=== PATIENT | female | born 1995 | race Caucasian/White ===

== ENCOUNTER 2019-08-15 21:14 | Emergency (ER) | payer OTHER ==
[~2019-08-15] VITALS: Ht 157.4 cm; Wt 91.5 kg
[~2019-08-15 21:14] MED LIST: CETI10TA17; FLUT100D; NF-XOP-HFA
[2019-08-15] MEDS ORDERED: LACTATED RINGERS 1,000 ML IV ONE (21:32)
[2019-08-15 21:42] LABS: BASOPHILS % (AUTO) 0 % (0-10); EOSINOPHILS % (AUTO) 0 % (0-10); HEMATOCRIT 33 % (35-52); HEMOGLOBIN 11.1 G/DL (11.5-16.0); LYMPHOCYTES # (AUTO) 0.8 X 10^3 (1.0-4.0); LYMPHOCYTES % (AUTO) 7 % (12-44); MEAN CORPUSCULAR HEMOGLOBIN 26 PG (25-34); MEAN CORPUSCULAR HGB CONC 34 G/DL (32-36); MEAN CORPUSCULAR VOLUME 78 FL (80-99); MONOCYTES # (AUTO) 0.6 X 10^3 (0.0-1.0); MONOCYTES % (AUTO) 6 % (0-12); NEUTROPHILS % (AUTO) 87 % (42-75); PLATELET COUNT 266 10^3/uL (130-400); RED CELL DISTRIBUTION WIDTH 13.6 % (10.0-14.5); WHITE BLOOD COUNT 10.4 10^3/uL (4.3-11.0)
[2019-08-15 21:58] LABS: ALANINE AMINOTRANSFERASE 35 U/L (0-55); ALBUMIN 3.5 GM/DL (3.2-4.5); ALKALINE PHOSPHATASE 82 U/L (40-136); BILIRUBIN,TOTAL 0.2 MG/DL (0.1-1.0); BUN/CREATININE RATIO 9; CALCIUM 8.1 MG/DL (8.5-10.1); CARBON DIOXIDE 17 MMOL/L (21-32); CHLORIDE 105 MMOL/L (98-107); CREATININE SERUM 0.68 MG/DL (0.60-1.30); GFR ESTIMATED > 60; GLUCOSE 115 MG/DL (70-105); POTASSIUM 3.6 MMOL/L (3.6-5.0); SODIUM 133 MMOL/L (135-145); TOTAL PROTEIN 6.9 GM/DL (6.4-8.2)
[2019-08-15] MEDS ORDERED: PROAIR (22:01)
--- NOTE | 2019-08-15 22:21 | ED General ---
General Chief Complaint: Cough/Cold/Flu Symptoms Stated Complaint: FEVER / COUGH - 32 WKS PREG Nursing Triage Note: FEVER 101.2 AT 1900 TOOK TYLENOL, HAS HX OF DECREASED MOVEMENT WITH FEBRILE ILLNESS. SOB AND PRODUCTIVE COUGH NOTED Nursing Sepsis Screen: No Definite Risk Source of Information: Patient Exam Limitations: No Limitations History of Present Illness Date Seen by Provider: Aug 15, 2019 Time Seen by Provider: 21:18 Initial Comments This 24-year-old young lady is about 32 weeks gestational age and presents with complaints of cough, dyspnea, tachycardia, myalgias, earache, sore throat, and temperature up to 101.2. She last took Tylenol at 19:00. She also took Tussin for cough. She uses an inhaler for treatment of her asthma. She is in town visiting for the holidays. She sees a family physician named Yadi Burch for her primary care and obstetrical care in [place], [place]. She also complains of decreased movement. heart tones are noted to be approximately 150 by Doppler. She did not receive an influenza vaccine this year. Allergies and Home Medications Allergies Coded Allergies: No Known Drug Allergies (Unverified , 08/15/19) Patient Home Medication List Home Medication List Reviewed: Yes Review of Systems Review of Systems Constitutional: see HPI EENTM: see HPI Respiratory: see HPI Cardiovascular: see HPI Gastrointestinal: no symptoms reported Genitourinary: no symptoms reported : Yes Musculoskeletal: see HPI Skin: no symptoms reported Psychiatric/Neurological: No Symptoms Reported Hematologic/Lymphatic: No Symptoms Reported Immunological/Allergic: no symptoms reported Past Cckcvwd-Rbaemp-Bdpjgl Hx Past Med/Social Hx: Reviewed Nursing Past Med/Soc Hx Patient Social History Alcohol Use: Denies Use Recreational Drug Use: No Recent Foreign Travel: No Contact w/Someone Who Travel: No Recent Infectious Disease Expo: No Recent Hopitalizations: No Physical Abuse: No Sexual Abuse: No Mistreated: No Fear: No Past Medical History Surgeries: No Respiratory: Yes Asthma Cardiac: No Neurological: No Genitourinary: No Gastrointestinal: No Musculoskeletal: No Endocrine: No HEENT: No Cancer: No Psychosocial: No Integumentary: No Blood Disorders: No Physical Exam Vital Signs Vital Signs - First Documented 08/15/19 21:19 Temp 36.9 Pulse 122 Resp 20 B/P (MAP) 145/88 (107) Pulse Ox 97 O2 Delivery Room Air Capillary Refill : Less Than 3 Seconds Height, Weight, BMI Height: '" Weight: lbs. oz. kg; 36.00 BMI Method: General Appearance: WD/WN, Mild Distress HEENT: PERRL/EOMI, Normal ENT Inspection, Pharynx Normal, TM Abnormal (L) (erythematous around the room without effusion) Neck: Normal Inspection Respiratory: Lungs Clear, Normal Breath Sounds, No Accessory Muscle Use, No Respiratory Distress Cardiovascular: No Edema, No Murmur, Tachycardia Gastrointestinal: Non Tender, Soft, Other (appropriately gravid for gestational age) Extremity: Normal Inspection, No Pedal Edema Neurologic/Psychiatric: Alert, Oriented x3, No Motor/Sensory Deficits, Normal Mood/Affect, ekg tech II-XII Norm as Tested Skin: Normal Color, Warm/Dry Progress/Results/Core Measures Suspected Sepsis Recent Fever Within 48 Hours: Yes Infection Criteria Present: None New/Unexplained Altered Menta: No Sepsis Screen: No Definite Risk SIRS Temperature: Pulse: 122 Respiratory Rate: 20 Laboratory Tests 08/15/19 21:30: White Blood Count 10.4 Blood Pressure 145 /88 Mean: 107 Laboratory Tests 08/15/19 21:30: Creatinine 0.68, Platelet Count 266, Total Bilirubin 0.2 Results/Orders Lab Results Laboratory Tests Test 08/15/19 21:30 Range/Units White Blood Count 10.4 4.3-11.0 10^3/uL Red Blood Count 4.24 L 4.35-5.85 10^6/uL Hemoglobin 11.1 L 11.5-16.0 G/DL Hematocrit 33 L 35-52 % Mean Corpuscular Volume 78 L 80-99 FL Mean Corpuscular Hemoglobin 26 25-34 PG Mean Corpuscular Hemoglobin Concent 34 32-36 G/DL Red Cell Distribution Width 13.6 10.0-14.5 % Platelet Count 266 130-400 10^3/uL Mean Platelet Volume 10.0 7.4-10.4 FL Neutrophils (%) (Auto) 87 H 42-75 % Lymphocytes (%) (Auto) 7 L 12-44 % Monocytes (%) (Auto) 6 0-12 % Eosinophils (%) (Auto) 0 0-10 % Basophils (%) (Auto) 0 0-10 % Neutrophils # (Auto) 9.0 H 1.8-7.8 X 10^3 Lymphocytes # (Auto) 0.8 L 1.0-4.0 X 10^3 Monocytes # (Auto) 0.6 0.0-1.0 X 10^3 Eosinophils # (Auto) 0.0 0.0-0.3 10^3/uL Basophils # (Auto) 0.0 0.0-0.1 10^3/uL Sodium Level 133 L 135-145 MMOL/L Potassium Level 3.6 3.6-5.0 MMOL/L Chloride Level 105 98-107 MMOL/L Carbon Dioxide Level 17 L 21-32 MMOL/L Anion Gap 11 5-14 MMOL/L Blood Urea Nitrogen 6 L 7-18 MG/DL Creatinine 0.68 0.60-1.30 MG/DL Estimat Glomerular Filtration Rate > 60 BUN/Creatinine Ratio 9 Glucose Level 115 H 70-105 MG/DL Calcium Level 8.1 L 8.5-10.1 MG/DL Corrected Calcium 8.5 8.5-10.1 MG/DL Total Bilirubin 0.2 0.1-1.0 MG/DL Aspartate Amino Transf (AST/SGOT) 24 5-34 U/L Alanine Aminotransferase (ALT/SGPT) 35 0-55 U/L Alkaline Phosphatase 82 40-136 U/L Total Protein 6.9 6.4-8.2 GM/DL Albumin 3.5 3.2-4.5 GM/DL Micro Results Microbiology 08/15/19 Influenza Types A,B Antigen (KATHLEEN) - Final, Complete My Orders Orders - ROBYN HOWELL MD Influenza A And B Antigens (08/15/19 21:18) Ed Iv/Invasive Line Start (08/15/19 21:32) Cbc With Automated Diff (08/15/19 21:32) Comprehensive Metabolic Panel (08/15/19 21:32) Lactated Ringers (Lr 1000 Ml Iv Solution (08/15/19 21:32) Medications Given in ED Current Medications Medications Dose Ordered Sig/Lesley Route Start Time Stop Time Status Last Admin Dose Admin Lactated Ringer's 1,000 ml @ 0 mls/hr Q0M ONCE IV 08/15/19 21:32 08/15/19 21:35 DC 08/15/19 21:38 1,000 MLS/HR Vital Signs/I&O 08/15/19 08/15/19 08/15/19 21:19 21:19 23:00 Temp 36.9 36.9 Pulse 122 122 Resp 20 20 B/P (MAP) 145/88 (107) 145/88 (107) Pulse Ox 97 97 O2 Delivery Room Air Room Air 08/16/19 00:00 Intake Total 1000 ml Balance 1000 ml Capillary Refill : Less Than 3 Seconds Blood Pressure Mean: 107 Progress Note : Progress Note Patient tested positive for influenza B. Patient is feeling improved after IV fluids. movement is now reassuring after hydration. heart tones were 150 by Doppler. We discussed use of Tamiflu. Since patient is now 72 hours into symptoms and Tamiflu is not likely to be beneficial, patient elects to not take Tamiflu. Departure Impression Primary Impression: Influenza B Additional Impressions: Qualified Codes: Z3A.32 - 32 weeks gestation of Asthma Qualified Codes: J45.909 - Unspecified asthma, uncomplicated Disposition: 01 HOME, SELF-CARE Condition: Improved Departure-Patient Inst. Decision time for Depature: 22:45 Referrals: NO,LOCAL PHYSICIAN (PCP/Family) Primary Care Physician Patient Instructions: Flu, Adult (DC) Add. Discharge Instructions: Use your inhaler 2 puffs every 4 hours as needed for wheezing and shortness of breath. Stay well hydrated with plenty of clear liquids. You may safely use Tylenol (acetaminophen) up to 1000 mg every 6 hours as needed for fever and body aches. Please be aware that Tylenol may not bring your temperature to normal even if used at maximum doses while you have the flu. Keep your next appointment with your primary care provider. Return to the ER if you have any further problems or concerns. All discharge instructions reviewed with patient and/or family. Voiced understanding. ROBYN HOWELL MD Aug 15, 2019 22:21
[2019-08-15 23:00] VITALS: BP 145/88
== END 2019-08-15 23:01 | disposition home or self-care (01) ==
LOC: ER 21:16 → MERGE 21:16 → ER 23:01
DX: O99.513 Diseases of the respiratory system complicating pregnancy, third trimester (principal); J10.1 Influenza due to other identified influenza virus with other respiratory manifestations; J45.909 Unspecified asthma, uncomplicated; Z3A.32 32 weeks gestation of pregnancy
CPT/HCPCS: 36415; 80053; 85025; 87804; 96360